=== PATIENT | male | born 2000 | race Caucasian/White ===

== ENCOUNTER 2021-08-28 12:00 | Outpatient (CLI) | payer OTHER, SELFPAY | END 2021-08-28 12:01 | disposition home or self-care (01) | LOC: SLEEP 08-29 15:23 | PROVIDERS: Visit Provider Physician Assistant Medical | DX: G47.33 Obstructive sleep apnea (adult) (pediatric) (principal); Z68.43 Body mass index [BMI] 50.0-59.9, adult | CPT/HCPCS: G0399 ==

== ENCOUNTER 2021-09-17 20:00 | Outpatient (CLI) | payer OTHER, SELFPAY | END 2021-09-17 20:01 | disposition home or self-care (01) | LOC: SLEEP 09-18 06:58 | PROVIDERS: Visit Provider Physician Assistant Medical | DX: G47.33 Obstructive sleep apnea (adult) (pediatric) (principal) | CPT/HCPCS: 95811 ==

== ENCOUNTER 2024-03-22 07:13 | Outpatient (RCR) | payer OTHER, SELFPAY | END 2024-04-21 23:59 | disposition home or self-care (01) | LOC: SPT 07:13 | PROVIDERS: Visit Provider Physical Medicine & Rehabilitation | DX: M54.50 Low back pain, unspecified (principal); E66.9 Obesity, unspecified; M21.371 Foot drop, right foot | CPT/HCPCS: 97113; 97161 ==

== ENCOUNTER 2024-04-22 06:00 | Outpatient (RCR) | payer OTHER, SELFPAY | END 2024-05-09 23:59 | disposition home or self-care (01) | LOC: SPT 06:00 | PROVIDERS: Visit Provider Physical Medicine & Rehabilitation | DX: M54.50 Low back pain, unspecified (principal); M79.606 Pain in leg, unspecified | CPT/HCPCS: 97113; 97530 ==

== ENCOUNTER 2024-06-29 06:00 | Outpatient (RCR) | payer OTHER, SELFPAY | END 2024-07-22 23:59 | disposition home or self-care (01) | LOC: SPT 06:00 | PROVIDERS: Visit Provider Registered Nurse | DX: M47.14 Other spondylosis with myelopathy, thoracic region (principal) | CPT/HCPCS: 97110; 97161 ==

== ENCOUNTER 2024-08-20 06:30 | Outpatient (RCR) | payer OTHER, SELFPAY | END 2024-09-19 23:59 | disposition home or self-care (01) | LOC: SPT 06:30 | PROVIDERS: Visit Provider Registered Nurse | DX: M47.14 Other spondylosis with myelopathy, thoracic region (principal) | CPT/HCPCS: 97110; 97116 ==

== ENCOUNTER 2024-09-20 05:25 | Outpatient (RCR) | payer OTHER, SELFPAY | END 2024-10-19 23:59 | disposition home or self-care (01) | LOC: SPT 05:25 | PROVIDERS: Visit Provider Registered Nurse | DX: M47.14 Other spondylosis with myelopathy, thoracic region (principal) | CPT/HCPCS: 97110; 97112; 97116 ==

== ENCOUNTER 2024-10-20 05:00 | Outpatient (RCR) | payer OTHER, SELFPAY | END 2024-11-19 23:59 | disposition home or self-care (01) | LOC: SPT 05:00 | PROVIDERS: Visit Provider Registered Nurse | DX: M47.14 Other spondylosis with myelopathy, thoracic region (principal) | CPT/HCPCS: 97110; 97116 ==

== ENCOUNTER 2024-11-20 05:00 | Outpatient (RCR) | payer OTHER, SELFPAY | END 2024-12-19 23:59 | disposition home or self-care (01) | LOC: SPT 05:00 | PROVIDERS: Visit Provider Registered Nurse | DX: M47.14 Other spondylosis with myelopathy, thoracic region (principal) | CPT/HCPCS: 97110; 97116 ==

== ENCOUNTER 2024-12-20 05:00 | Outpatient (RCR) | payer OTHER, SELFPAY | END 2025-01-19 23:59 | disposition home or self-care (01) | LOC: SPT 05:00 | PROVIDERS: Visit Provider Registered Nurse | DX: M47.14 Other spondylosis with myelopathy, thoracic region (principal) | CPT/HCPCS: 97110; 97116 ==

== ENCOUNTER 2025-01-20 06:00 | Outpatient (RCR) | payer OTHER, SELFPAY | END 2025-02-19 23:59 | disposition home or self-care (01) | LOC: SPT 06:00 | PROVIDERS: Visit Provider Registered Nurse | DX: M47.14 Other spondylosis with myelopathy, thoracic region (principal) | CPT/HCPCS: 97110; 97116 ==

== ENCOUNTER 2025-02-20 06:30 | Outpatient (RCR) | payer OTHER, SELFPAY | END 2025-03-21 23:59 | disposition home or self-care (01) | LOC: SPT 06:30 | PROVIDERS: Visit Provider Registered Nurse | DX: M47.14 Other spondylosis with myelopathy, thoracic region (principal) | CPT/HCPCS: 97110; 97112; 97116 ==

== ENCOUNTER 2025-03-22 05:00 | Outpatient (RCR) | payer OTHER, SELFPAY | END 2025-04-21 23:59 | disposition home or self-care (01) | LOC: SPT 05:00 | PROVIDERS: Visit Provider Registered Nurse | DX: M47.14 Other spondylosis with myelopathy, thoracic region (principal) | CPT/HCPCS: 97110; 97112; 97116 ==

== ENCOUNTER 2025-04-22 05:00 | Outpatient (RCR) | payer OTHER, SELFPAY | END 2025-05-21 23:59 | disposition home or self-care (01) | LOC: SPT 05:00 | PROVIDERS: Visit Provider Registered Nurse | DX: M47.14 Other spondylosis with myelopathy, thoracic region (principal) | CPT/HCPCS: 97110; 97112 ==

== ENCOUNTER 2025-05-22 05:00 | Outpatient (RCR) | payer OTHER, SELFPAY | END 2025-06-21 23:59 | disposition home or self-care (01) | LOC: SPT 05:00 | PROVIDERS: Visit Provider Registered Nurse | DX: M47.14 Other spondylosis with myelopathy, thoracic region (principal) | CPT/HCPCS: 97110; 97112 ==